=== PATIENT | female | born 1970 | race Caucasian/White ===

== ENCOUNTER → 2019-09-17 14:30 | Outpatient (BNVA) | payer BC, SELFPAY | PROVIDERS: Family Provider Family Medicine; Visit Provider Nurse Practitioner | DX: R05 Cough (principal); Z20.828 Contact with and (suspected) exposure to other viral communicable diseases | CPT/HCPCS: 87635 ==

== ENCOUNTER 2020-01-01 12:00 | Outpatient (CLI) | payer BC, SELFPAY | END 2020-01-01 12:01 | disposition home or self-care (01) | LOC: SLEEP 01-02 11:10 | PROVIDERS: Family Provider Family Medicine; Visit Provider Family Medicine | DX: G47.33 Obstructive sleep apnea (adult) (pediatric) (principal) | CPT/HCPCS: G0399 ==

== ENCOUNTER 2020-05-21 11:28 | Outpatient (RCR) | payer OTHER, SELFPAY | END 2020-05-30 23:59 | disposition home or self-care (01) | LOC: SPT 11:28 | PROVIDERS: Family Provider Family Medicine; PCP Family Medicine; Referring Provider Family Medicine; Visit Provider Family Medicine | DX: H81.399 Other peripheral vertigo, unspecified ear (principal); Q26.9 Congenital malformation of great vein, unspecified | CPT/HCPCS: 95992; 97112; 97163 ==

== ENCOUNTER 2020-05-31 06:00 | Outpatient (RCR) | payer OTHER, SELFPAY | END 2020-06-30 23:59 | disposition home or self-care (01) | LOC: SPT 06:00 | PROVIDERS: Family Provider Family Medicine; PCP Family Medicine; Referring Provider Family Medicine; Visit Provider Family Medicine | DX: H81.399 Other peripheral vertigo, unspecified ear (principal); Q26.9 Congenital malformation of great vein, unspecified | CPT/HCPCS: 97112 ==

== ENCOUNTER 2020-06-22 13:36 | Outpatient (CLI) | payer OTHER, SELFPAY ==
--- NOTE | 2020-06-22 13:39 | MM_ITS ---
WS: [id number] BILATERAL SCREENING DIGITAL MAMMOGRAM WITH CAD HISTORY: SCREENING COMPARISON: 01/18/2018 and 04/26/2011 Bilateral CC and MLO views submitted. Computer aided detection analyzed. Breast composition: The breasts are extremely dense, which lowers the sensitivity of mammography. No suspicious masses, microcalcifications or architectural distortion. RIGHT breast calcification are be nign. MM/[id number] IMPRESSION: BI-RADS: 2-Benign FOLLOW UP: 1 Year Follow-up
== END 2020-06-22 13:37 | disposition home or self-care (01) ==
LOC: RADSHAW 13:38
PROVIDERS: PCP Family Medicine; Visit Provider Family Medicine
DX: Z12.31 Encounter for screening mammogram for malignant neoplasm of breast (principal)
CPT/HCPCS: 77067

== ENCOUNTER 2020-07-01 06:00 | Outpatient (RCR) | payer OTHER, SELFPAY | END 2020-07-30 23:59 | disposition home or self-care (01) | LOC: SPT 06:00 | PROVIDERS: PCP Family Medicine; Referring Provider Family Medicine; Visit Provider Family Medicine | DX: H81.399 Other peripheral vertigo, unspecified ear (principal); Q26.9 Congenital malformation of great vein, unspecified | CPT/HCPCS: 97110; 97112 ==

== ENCOUNTER → 2020-07-28 14:03 | Outpatient (BNVA) | payer OTHER, SELFPAY | PROVIDERS: PCP Family Medicine; Visit Provider Nurse Practitioner Women's Health | DX: R87.610 Atypical squamous cells of undetermined significance on cytologic smear of cervix (ASC-US) (principal); R87.810 Cervical high risk human papillomavirus (HPV) DNA test positive | CPT/HCPCS: 88175 ==

== ENCOUNTER → 2020-12-29 12:13 | Outpatient (BNVA) | payer OTHER, SELFPAY | PROVIDERS: PCP Family Medicine; Visit Provider Nurse Practitioner Women's Health | DX: N90.89 Other specified noninflammatory disorders of vulva and perineum (principal) | CPT/HCPCS: 88305 ==

== ENCOUNTER 2021-01-24 21:26 | Emergency (ER) | payer OTHER, SELFPAY ==
[2021-01-24 21:41] VITALS: BP 129/66; PULSE 103; RESP 22; TEMP 36.9; O2SAT 100; BMI 18.8
--- NOTE | 2021-01-24 22:35 | W.ED.GENADLT ---
Documented by User: Anupam Cartwright MD 01/27/21 22:39 HPI - General Adult General: Chief complaint: General Medical Stated complaint: Heart Racing\Trembeling Phy Sym Also Time Seen by Provider: 01/24/21 22:05 History of Present Illness: HPI narrative: Patient is a 50-year-old female with a history of vestibular issues presenting to the emergency room with worsening vertigo symptoms, nausea, and anxiety now worsening for 4 days. Patient tells me that feeling with chest is racing and that my anxiety is worsening. Patient denies any chest pain, shortness of breath, nausea/vomiting, abdominal pain, fever/chills, cough, ear drainage. She is followed by a vestibular specialist in [place]. Onset: 4 days ago Duration:4 days Location:home Severity:moderate Review of Systems Narrative: Constitutional: No fever, no chills. +paresthesia HEENT: No vision changes CV: No chest pain, no palpitations PULM: no cough, no dyspnea. GI: No abdominal pain, no N/V/D. : No dysuria MSKEL: No muscle pain SKIN: No new rashes, no lesions. NEURO: No headache, no focal weakness. +vertigo HEME: No visible bruises PSYCH: Normal mood PFSH ED PFSH: Medical History Brain trauma visual midline shift syndrome Condyloma acuminata (~2019) anogenital- tx with liquid nitrogen Depression with anxiety Irritable bowel syndrome (IBS) more diarrhea No pertinent past medical history neghx: htn,dm,thyroid,dvt/pe PCP: Dr. Resendez Sleep apnea Vestibular migraine Surgical History History of facial surgery History of hemorrhoidectomy History of placement of ear tubes Hx of oral surgery (~2017) Family History Mother Hypertension Thyroid disease thyroid cancer Hypercholesteremia Father Heart disease Grandmother Diabetes Paternal and Maternal Hypertension Maternal and Paternal Stroke Maternal and Paternal Thyroid disease Maternal Grandfather No problems noted. Family/Other Diabetes Paternal Aunt Colon cancer Maternal Great Grandmother---dx age unknown Heart disease Paternal Aunt x 3 Sister Thyroid disease Denies family history of Ovarian cancer Breast cancer Uterine cancer Physical Exam Narrative: EXAM NARRATIVE: Head: Atraumatic Eyes: PERRL, conjunctiva without injection ENT: Mucous membrane moist NECK: Supple, ROM intact LUNGS: LCTAB, no crackles/rhonchi CV: RRR ABDOMEN: Soft, nontender in all quadrants EXTREMITY: Normal ROM SKIN: No rash or erythema NEURO: Mental status? Awake, alert, and oriented to self, year, month, location, and situation.? Following simple axial and appendicular commands.? Has appropriate fund of knowledge, comprehension, and insight.? Able to recall and understands pertinent aspects of medical history and current treatment status.? ? Language? Speech is fluent without word-finding difficulties.? Intact naming, expression, receptionist telephone operator, and repetition.? ? Cranial nerves? 2,3,4,6: PERRL, EOMI with no nystagmus. 5: Intact sensation to light touch, symmetric? 7: Smile symmetrical, no facial droop.? 8: Hearing grossly intact.? 9,10: Normal palate movement.? 11: Normal strength in trapezius bilaterally 12: Tongue protrudes midline.? ? Motor examination? Normal bulk & tone. Strength as follows (R/L): Delts (5/5), Biceps (5/5), Triceps (5/5), Wrist ext (5/5), hip flexors (5/5), plantarflexors (5/5), dorsiflexors (5/5). Sensation? Light Touch: Grossly intact and equal in upper and lower extremities bilaterally? Romberg: Negative.? Distal joint position sense intact ? Coordination? Pgsatx-kt-wqii-finger movements intact without dysmetria or past-pointing.? Rapid fingertaps: preserved amplitude without decriment.? No tremor, myoclonus or truncal ataxia.? ? Gait/stance? Unbalanced gait with eyes closed Requiring cane and eyes for ambulation PSYCH: Normal mood and affect Course Vital Signs: Vital signs: Vital Signs Temperature 98.5 F 01/24/21 21:41 Pulse Rate 90 01/24/21 23:59 Respiratory Rate 18 01/24/21 23:59 Blood Pressure 120/80 01/24/21 23:59 Pulse Oximetry 100 01/24/21 21:41 MDM - General Adult MDM Narrative: Medical decision making narrative: 50-year-old female with history of seizure disorder presenting to emergency room with worsening vertigo symptoms for the last 4 days. Patient also reports anxiety-like symptoms . EKG showing regular sinus rhythm at HT of 102. Normal axis. No ST elevations/depressions to suggest coronary occlusion. Normal [place], QRS, QT intervals. Laboratory work-up today including CBC, BMP, troponin, XR chest and EKG pending at this time. Lab Data: Labs: Lab Results 01/24/21 01/24/21 01/24/21 22:41 22:41 22:41 WBC 8.5 10^3/uL 10^3/ uL (4.0-10.0) RBC 4.52 10^6/uL 10^6 /uL (4.1-5.3) Hgb 13.6 g/dL g/dL (11.5-15.3) Hct 41.8 % % (37.0-47.0) MCV 92.5 fl fl (81-99) MCH 30.1 pg pg (28.0-34.0) MCHC 32.5 g/dL g/dL (30.0-36.0) RDW 12.6 % % (12.1-15.1) Plt Count 288 10^3/cmm 10^3 /cmm (130-400) MPV 9.5 fL fL (7.4-10.4) Neut % (Auto) 62.7 % % Lymph % (Auto) 29.2 % % [place] % (Auto) 5.6 % % Eos % (Auto) 1.5 % % Baso % (Auto) 0.6 % % Neut # (Auto) 5.30 10^3/uL 10^3 /uL (1.8-7.7) Lymph # (Auto) 2.5 10^3/uL 10^3/ uL (0.8-4.8) [place] # (Auto) 0.5 10^3/uL 10^3/ uL (0.2-0.9) Eos # (Auto) 0.1 10^3/uL 10^3/ uL (0.0-0.8) Baso # (Auto) 0.1 10^3/uL 10^3/ uL (0.0-0.1) Nucleated RBC % (a uto) 0 % % Nucleated RBCs # 0.0 /100WBC /100W BC Sodium 140 mmol/L mmol/L (136-145) Potassium 4.0 mmol/L mmol/L (3.5-5.1) Chloride 105 mmol/L mmol/L (98-107) Carbon Dioxide 24 mmol/L mmol/L (22-29) Anion Gap 15.0 (5-19) BUN 10 mg/dL mg/dL (6-20) Creatinine 1.0 mg/dL H mg/dL (0.5-0.9) GFR Calculation 58.2 mL/min L mL/ min (90-130) Glucose 159 mg/dL H mg/dL (65-115) Calculated Osmolal ity 292 mOsm/kg mOsm/ kg (285-295) Calcium 9.3 mg/dL mg/dL (8.5-10.5) Troponin T Gen 5 n g/L 6 ng/L ng/L (0-10) Discharge Plan Discharge Patient Disposition: Home Clinical Impression: Vertigo, Nausea Condition: Stable Prescriptions: No Action alprazolam [Xanax] 0.5 mg tablet 0.5 mg PO DAILY PRNRF: 0 temazepam 15 mg capsule 15 mg PO .HS PRNRF: 0 ondansetron HCl [Zofran] 4 mg tablet 4 mg PO Q8H PRNRF: 0 cholecalciferol (vitamin D3) 10 mcg (400 unit) capsule 10 mcg PO DAILY RF: 0 escitalopram oxalate [Lexapro] 20 mg tablet 10 mg PO DAILY RF: 0 topiramate [Topamax] 50 mg tablet 100 mg PO DAILY RF: 0 Discharge Orders: Discharge ED (Routine); Ordered 01/24/21 Ordered By: Marquis Cisneros Referrals: Tre Resendez DO [Primary Care Provider] - Discharge Diet: Advance as tolerated Discharge Activity: Resume usual activity Patient Instructions: Dizziness (ED) Activity Restrictions/Additional Instructions: Please follow-up with your specialist for further evaluation of your symptoms. Come back to the emergency room if your symptom worsens, if any fever chills, nausea/vomiting, or any new concerning complaints. Sign Out Sign Out Data: Patient Sign Out occurred on 01/24/21 at 23:16. Patient's care was discussed, and care was transferred from to Marquis Cisneros. Coding Level of Care Code ED Product Designer for Chg Fwd Documented by User: REGINA Gonzales 01/24/21 23:58 HPI - General Adult General: Chief complaint: General Medical Stated complaint: Heart Racing\Trembeling Phy Sym Also Time Seen by Provider: 01/24/21 22:05 [facility] ED PFSH: Medical History Brain trauma visual midline shift syndrome Condyloma acuminata (~2019) anogenital- tx with liquid nitrogen Depression with anxiety Irritable bowel syndrome (IBS) more diarrhea No pertinent past medical history neghx: htn,dm,thyroid,dvt/pe PCP: Dr. Resendez Sleep apnea Vestibular migraine Surgical History History of facial surgery History of hemorrhoidectomy History of placement of ear tubes Hx of oral surgery (~2017) Family History Mother Hypertension Thyroid disease thyroid cancer Hypercholesteremia Father Heart disease Grandmother Diabetes Paternal and Maternal Hypertension Maternal and Paternal Stroke Maternal and Paternal Thyroid disease Maternal Grandfather No problems noted. Family/Other Diabetes Paternal Aunt Colon cancer Maternal Great Grandmother---dx age unknown Heart disease Paternal Aunt x 3 Sister Thyroid disease Denies family history of Ovarian cancer Breast cancer Uterine cancer Course ED course: 2349, laboratory values came back within normal limits. No signs of significant abnormalities noted. Reviewed this with patient recommended follow-up with specialist or primary care for further evaluation and treatment. Patient stated understanding. Vital Signs: Vital signs: Vital Signs Temperature 98.5 F 01/24/21 21:41 Pulse Rate 90 01/24/21 23:59 Respiratory Rate 18 01/24/21 23:59 Blood Pressure 120/80 01/24/21 23:59 Pulse Oximetry 100 01/24/21 21:41 MDM - General Adult Lab Data: Labs: Lab Results 01/24/21 01/24/21 01/24/21 22:41 22:41 22:41 WBC 8.5 10^3/uL 10^3/ uL (4.0-10.0) RBC 4.52 10^6/uL 10^6 /uL (4.1-5.3) Hgb 13.6 g/dL g/dL (11.5-15.3) Hct 41.8 % % (37.0-47.0) MCV 92.5 fl fl (81-99) MCH 30.1 pg pg (28.0-34.0) MCHC 32.5 g/dL g/dL (30.0-36.0) RDW 12.6 % % (12.1-15.1) Plt Count 288 10^3/cmm 10^3 /cmm (130-400) MPV 9.5 fL fL (7.4-10.4) Neut % (Auto) 62.7 % % Lymph % (Auto) 29.2 % % [place] % (Auto) 5.6 % % Eos % (Auto) 1.5 % % Baso % (Auto) 0.6 % % Neut # (Auto) 5.30 10^3/uL 10^3 /uL (1.8-7.7) Lymph # (Auto) 2.5 10^3/uL 10^3/ uL (0.8-4.8) [place] # (Auto) 0.5 10^3/uL 10^3/ uL (0.2-0.9) Eos # (Auto) 0.1 10^3/uL 10^3/ uL (0.0-0.8) Baso # (Auto) 0.1 10^3/uL 10^3/ uL (0.0-0.1) Nucleated RBC % (a uto) 0 % % Nucleated RBCs # 0.0 /100WBC /100W BC Sodium 140 mmol/L mmol/L (136-145) Potassium 4.0 mmol/L mmol/L (3.5-5.1) Chloride 105 mmol/L mmol/L (98-107) Carbon Dioxide 24 mmol/L mmol/L (22-29) Anion Gap 15.0 (5-19) BUN 10 mg/dL mg/dL (6-20) Creatinine 1.0 mg/dL H mg/dL (0.5-0.9) GFR Calculation 58.2 mL/min L mL/ min (90-130) Glucose 159 mg/dL H mg/dL (65-115) Calculated Osmolal ity 292 mOsm/kg mOsm/ kg (285-295) Calcium 9.3 mg/dL mg/dL (8.5-10.5) Troponin T Gen 5 n g/L 6 ng/L ng/L (0-10) Discharge Plan Discharge Patient Disposition: Home Clinical Impression: Vertigo, Nausea Condition: Stable Prescriptions: No Action alprazolam [Xanax] 0.5 mg tablet 0.5 mg PO DAILY PRNRF: 0 temazepam 15 mg capsule 15 mg PO .HS PRNRF: 0 ondansetron HCl [Zofran] 4 mg tablet 4 mg PO Q8H PRNRF: 0 cholecalciferol (vitamin D3) 10 mcg (400 unit) capsule 10 mcg PO DAILY RF: 0 escitalopram oxalate [Lexapro] 20 mg tablet 10 mg PO DAILY RF: 0 topiramate [Topamax] 50 mg tablet 100 mg PO DAILY RF: 0 Discharge Orders: Discharge ED (Routine); Ordered 01/24/21 Ordered By: Marquis Cisneros Referrals: Tre Resendez DO [Primary Care Provider] - Discharge Diet: Advance as tolerated Discharge Activity: Resume usual activity Patient Instructions: Dizziness (ED) Activity Restrictions/Additional Instructions: Please follow-up with your specialist for further evaluation of your symptoms. Come back to the emergency room if your symptom worsens, if any fever chills, nausea/vomiting, or any new concerning complaints. Sign Out Sign Out Data: Patient Sign Out occurred on 01/24/21 at 23:16. Patient's care was discussed, and care was transferred from to Marquis Cisneros. Coding Level of Care Code ED Product Designer for Joey Gaspar
[2021-01-24 22:45] LABS: Basophils # 0.1 10^3/uL (0.0-0.1); Basophils % 0.6 %; Eosinophils # 0.1 10^3/uL (0.0-0.8); Eosinophils % 1.5 %; Hematocrit 41.8 % (37.0-47.0); Hemoglobin 13.6 g/dL (11.5-15.3); Lymphocytes # 2.5 10^3/uL (0.8-4.8); Lymphocytes % 29.2 %; Mean Corpuscular HGB Conc 32.5 g/dL (30.0-36.0); Mean Corpuscular Hemoglobin 30.1 pg (28.0-34.0); Mean Corpuscular Volume 92.5 fl (81-99); Mean Platelet Volume 9.5 fL (7.4-10.4); Monocytes # 0.5 10^3/uL (0.2-0.9); Monocytes % 5.6 %; Neutrophils % 62.7 %; Nucleated Red Blood Cells % 0 %; Platelet Count 288 10^3/cmm (130-400); Red Blood Count 4.52 10^6/uL (4.1-5.3); Red Cell Distribution Width 12.6 % (12.1-15.1); White Blood Count 8.5 10^3/uL (4.0-10.0)
[2021-01-24 23:06] LABS: Blood Urea Nitrogen 10 mg/dL (6-20); Calcium 9.3 mg/dL (8.5-10.5); Carbon Dioxide 24 mmol/L (22-29); Chloride 105 mmol/L (98-107); Glomerular Filtration Rate 58.2 mL/min (90-130); Glucose 159 mg/dL (65-115); Osmolality Calculated 292 mOsm/kg (285-295); Sodium 140 mmol/L (136-145)
[2021-01-24] MEDS: diphenhydrAMINE 50 mg/mL SDV 1mL IVP (23:13)
[2021-01-24] MEDS: LORazepam 2 mg/mL INJ 1 mL IVP (23:13)
[2021-01-24] MEDS: sodium chloride 0.9% 1,000 ML 999 ML IV (23:13)
[2021-01-24 23:41] LABS: Troponin T (5th) Once 6 ng/L (0-10)
[2021-01-24 23:59] VITALS: BP 120/80; PULSE 90; RESP 18
--- NOTE | 2021-01-25 00:01 | PC.NURSE ---
pt states that she feels better after meds
== END 2021-01-25 00:04 | disposition home or self-care (01) ==
PROVIDERS: Emergency Medicine; Emergency Provider Nurse Practitioner Family; PCP Family Medicine
DX: R42 Dizziness and giddiness (principal); R11.0 Nausea; F41.8 Other specified anxiety disorders; Z87.820 Personal history of traumatic brain injury
CPT/HCPCS: 36415; 80048; 84484; 85025; 96361; 96374; 96375; 99283; J1200; J2060; J7030

== ENCOUNTER → 2021-07-29 11:31 | Outpatient (BNVA) | payer OTHER, SELFPAY | PROVIDERS: PCP Family Medicine; Visit Provider Nurse Practitioner Women's Health | DX: R87.610 Atypical squamous cells of undetermined significance on cytologic smear of cervix (ASC-US) (principal); R87.810 Cervical high risk human papillomavirus (HPV) DNA test positive; Z01.419 Encounter for gynecological examination (general) (routine) without abnormal findings; B02.9 Zoster without complications; Z12.39 Encounter for other screening for malignant neoplasm of breast | CPT/HCPCS: 87624 ==

== ENCOUNTER → 2021-08-15 08:49 | Outpatient (BNVA) | payer OTHER, SELFPAY | PROVIDERS: PCP Family Medicine; Visit Provider Obstetrics & Gynecology | DX: R87.610 Atypical squamous cells of undetermined significance on cytologic smear of cervix (ASC-US) (principal); R87.810 Cervical high risk human papillomavirus (HPV) DNA test positive | CPT/HCPCS: 88305 ==

== ENCOUNTER 2021-09-13 15:13 | Outpatient (CLI) | payer OTHER, SELFPAY ==
--- NOTE | 2021-09-13 16:03 | MM_ITS ---
WS: [id number] BILATERAL 3D TOMOSYNTHESIS DIGITAL SCREENING MAMMOGRAPHY WITH CAD CLINICAL INFORMATION: SCREEN HISTORY: Screening mammogram. No current complaints. COMPARISON: June 22, 2020 TECHNIQUE: Bilateral CC and MLO views. FINDINGS: The breasts are composed of heterogeneous fibroglandular density tissue, which can limit the detectio n of small underlying mass lesions. Punctate and lucent centered calcifications. Stable clustered krysten cifications. No suspicious mass, asymmetry, calcifications, or architectural distortion. No evidence of malignancy. MM/[place] [id number] IMPRESSION: BI-RADS: 2-Benign FOLLOW UP: 1 Year Follow-up Recommend return to annual screening mammography.
== END 2021-09-13 15:14 | disposition home or self-care (01) ==
LOC: RAD 15:14
PROVIDERS: PCP Family Medicine; Visit Provider Nurse Practitioner Women's Health
DX: Z12.31 Encounter for screening mammogram for malignant neoplasm of breast (principal)
CPT/HCPCS: 77063; 77067

== ENCOUNTER 2022-01-27 19:58 | Emergency (ER) | payer MEDICARE, SELFPAY ==
[2022-01-27 20:05] VITALS: BP 163/96; PULSE 93; RESP 17; TEMP 36.6; O2SAT 98; BMI 20.7
--- NOTE | 2022-01-27 20:08 | ECG_ITS ---
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 Measurements Intervals [place] Rate: 93 P: 63 MT: 160 QRS: 72 QRSD: 79 T: 56 QT: 350 QTc: 437 Interpretive Statements SINUS RHYTHM NONSPECIFIC T-WAVE ABNORMALITY Compared to ECG 08/25/2014 14:51:16 No significant changes Electronically Signed On 01-27-2022 21:37:30 CDT by Bessy Owens M.D. [id number] f
--- NOTE | 2022-01-27 20:20 | XRR_ITS ---
PROCEDURE INFORMATION: Exam: XR Chest Exam date and time: 01/27/2022 8:35 PM Age: 51 years old Clinical indication: Pain; Shortness of breath and other: Numbness; Chest pressure; Additional info: Cp TECHNIQUE: Imaging protocol: Radiologic exam of the chest. Views: 1 view. COMPARISON: CR XR cervical spine 3V* [id number] 04/19/2015 9:57 AM FINDINGS: Lungs: Unremarkable. No consolidation. Pleural spaces: Unremarkable. No pleural effusion. No pneumothorax. Heart/Mediastinum: Unremarkable. No cardiomegaly. Bones/joints: Unremarkable. XR/XR chest 1V portable [id number] IMPRESSION: No acute findings.
[2022-01-27 20:52] LABS: Basophils # 0.1 10^3/uL (0.0-0.1); Basophils % 0.9 %; Eosinophils # 0.1 10^3/uL (0.0-0.8); Eosinophils % 1.4 %; Hematocrit 45.2 % (37.0-47.0); Lymphocytes # 3.1 10^3/uL (0.8-4.8); Lymphocytes % 38.7 %; Mean Corpuscular HGB Conc 33.2 g/dL (30.0-36.0); Mean Corpuscular Hemoglobin 30.2 pg (28.0-34.0); Mean Corpuscular Volume 90.9 fl (81-99); Mean Platelet Volume 9.2 fL (7.4-10.4); Monocytes # 0.5 10^3/uL (0.2-0.9); Monocytes % 6.2 %; Neutrophils # 4.11 10^3/uL (1.8-7.7); Neutrophils % 52.2 %; Nucleated Red Blood Cells % 0 %; Platelet Count 338 10^3/cmm (130-400); Red Blood Count 4.97 10^6/uL (4.1-5.3); White Blood Count 7.9 10^3/uL (4.0-10.0)
[2022-01-27 20:59] VITALS: BP 147/93; PULSE 87; RESP 17; O2SAT 99
[2022-01-27 21:12] LABS: Troponin(5th) Baseline 6 ng/L (0-10)
[2022-01-27 21:20] LABS: Alanine Aminotransferase 36 U/L (0-33); Albumin Level 4.7 g/dL (3.5-5.2); Alkaline Phosphatase 113 U/L (35-105); Anion Gap 15.9 (5-19); Aspartate Amino Transferase 23 U/L (0-32); Blood Urea Nitrogen 14 mg/dL (6-20); Calcium 10.2 mg/dL (8.5-10.5); Carbon Dioxide 29 mmol/L (22-29); Chloride 101 mmol/L (98-107); Globulin 2.7 g/dL (1.3-4.6); Glucose 92 mg/dL (65-115); NT Pro B Type Natriuretic Pept 70 pg/mL (0-125); Osmolality Calculated 294 mOsm/kg (285-295); Potassium 3.9 mmol/L (3.5-5.1); Sodium 142 mmol/L (136-145); Total Bilirubin 0.2 mg/dL (0.15-1.2); Total Protein 7.4 g/dL (6.6-8.7)
--- NOTE | 2022-01-27 22:20 | ECG_ITS ---
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 Measurements Intervals [place] Rate: 80 P: 55 IN: 161 QRS: 59 QRSD: 83 T: 53 QT: 375 QTc: 435 Interpretive Statements SINUS RHYTHM LOW QRS VOLTAGE IN PRECORDIAL LEADS [QRS DEFLECTION < 1.0 mV IN CHEST LEADS] POSSIBLE RIGHT VENTRICULAR CONDUCTION DELAY [RSR (QR) IN V1/V2] Compared to ECG 01/27/2022 20:08:41 Low QRS voltage now present T-wave abnormality no longer present Electronically Signed On 01-27-2022 22:27:56 CDT by Bessy Owens M.D. [id number]
--- NOTE | 2022-01-27 22:44 | W.ED.CHESTPA ---
HPI - Chest Pain General: Chief Complaint: Chest Pain Stated Complaint: cp Time Seen by Provider: 01/27/22 20:19 Source: patient History of Present Illness: 51-year-old female complains of chest discomfort. She has no prior history of coronary disease. She was evidently out to eat with family, had been to the bathroom and wash her hands, and felt palpitations in her chest, like her heart was pounding. She had some chest discomfort she describes as an ache. The heart pounding essentially is gone now, but she still complains of the ache in her anterior chest. She states it feels like I need a massage . Her blood pressure is elevated for her. She notes that usually her systolic pressure is around 100. She does have a history of anxiety, and wonders if that could be yet, although she has not had the specific symptoms prior MD complaint: chest pain Onset (ago): hour(s) Timing of current episode: constant Prior episodes: No Onset: during rest and after eating Pain location: substernal Relieving factors: nothing Exacerbating factors: nothing Associated symptoms: Reports palpitations; Deny abdominal pain, diaphoresis, dyspnea, fever(s), leg edema, nausea, sense of impending doom, syncope or vomiting Treatment prior to arrival: none Risk Factors: Coronary artery disease risk factors: family history of CAD before age 50 Review of Systems Const: Denies: fever(s) or diaphoresis Eyes: Denies: change in vision ENMT: Denies: throat pain Card: Reports: palpitations; Denies: syncope Resp: Denies: dyspnea GI: Denies: abdominal pain, nausea or vomiting Musc: Reports: back pain; Denies: neck pain Skin/Breast: Denies: rash Neuro: Reports: headache(s) PFSH ED PFSH: Medical History Brain trauma visual midline shift syndrome Condyloma acuminata (~2019) anogenital- tx with liquid nitrogen Depression with anxiety Irritable bowel syndrome (IBS) more diarrhea No pertinent past medical history neghx: htn,dm,thyroid,dvt/pe PCP: Dr. Resendez Sleep apnea Vestibular migraine managed by [facility] Surgical History History of facial surgery History of hemorrhoidectomy History of placement of ear tubes Hx of oral surgery (~2018) S/P sympathectomy (1997) Family History Mother Hypertension Thyroid disease thyroid cancer Hypercholesteremia Father Heart disease Hypercholesteremia Grandmother Diabetes Paternal and Maternal Hypertension Maternal and Paternal Stroke Maternal and Paternal Thyroid disease Maternal Grandfather No problems noted. Family/Other Diabetes Paternal Aunt Colon cancer Maternal Great Grandmother---dx age unknown Heart disease Paternal Aunt x 3 Sister Thyroid disease Denies family history of Ovarian cancer Breast cancer Uterine cancer Social History Smoking and tobacco status: former smoker Quit status (tobacco): has quit using tobacco Year quit tobacco: 05/2019 Second hand smoke exposure: No Smoking risk assessment/counseling performed?: No Alcohol intake: former Year of sobriety/quit date alcohol: 2014 Desire information about alcohol rehabilitation?: No Counseling given: No Desire information about substance/drug rehabilitation?: No Counseling given: No Physical Exam Const: COMMON NORMALS: no acute distress GENERAL APPEARANCE: cooperative; not ill appearing and not frail appearing HENMT: COMMON NORMALS: normocephalic, atraumatic and Normal external nose present HEAD & SCALP: normocephalic and atraumatic FACE & SINUS: normal facial exam and face symmetric NOSE: Normal external nose present Eye: COMMON NORMALS: Equal, round and reactive pupils present and EOMs intact bilaterally PUPIL: Yes Equal, round and reactive pupils present Neck/C-Spine: GENERAL: Yes trachea midline Chest: CHEST: Yes Symmetrical chest wall rise Resp: COMMON NORMALS: normal respiratory effort, No retractions, No use of accessory muscles and clear to auscultation bilaterally AUSCULTATION: clear to auscultation bilaterally Cardio: COMMON NORMALS: regular rate and regular rhythm RATE: regular rate RHYTHM: regular rhythm GI: COMMON NORMALS: Normal to inspection, nondistended, normoactive bowel sounds present Extremity: COMMON NORMALS: no pedal edema Neuro: BOGDAN COMA SCALE: document GCS findings Bogdan coma scale eye opening: Spontaneous Bogdan coma scale verbal response: Orientated Bogdan coma scale motor response: Obey commands Bogdan coma scale total score: 15 SENSORY EXAM: Yes extremities (intact) Psych: COMMON NORMALS: speech normal SPEECH: Yes normal speech Skin: COMMON NORMALS: no rashes or lesions noted GENERAL SKIN EXAM: no rashes or lesions noted Course Vital Signs: Vital signs: Vital Signs Temperature 97.9 F 01/27/22 20:05 Pulse Rate 76 01/28/22 00:21 Respiratory Rate 15 01/28/22 00:21 Blood Pressure 117/79 01/28/22 00:21 Pulse Oximetry 99 01/28/22 00:21 Oxygen Delivery Me thod 01/27/22 20:59 MDM - Chest Pain Medical Decision Making She has had a couple ofChest pain is essentially resolved. Episodes of palpitations here, which she attributes to her high blood pressure here which has waxed and waned. Currently she is normotensive. CBC is normal. BMP is normal. Her EKG shows a sinus rhythm with a normal axis and intervals. Her rate is 80. She has no acute ST changes, and no Q waves. She does have an RSR prime in V1 V2. Chest x-ray is nonacute. Delta troponin is 1. She will be allowed home. Lab Data : 01/27/22 20:40 01/27/22 20:40 Radiology Impressions Chest X-Ray 01/27/22 20:20 IMPRESSION: No acute findings. Laboratory Results WBC 7.9 10^3/uL (4.0-10.0) 01/27/22 20:40 RBC 4.97 10^6/uL (4.1-5.3) 01/27/22 20:40 Hgb 15.0 g/dL (11.5-15.3) 01/27/22 20:40 Hct 45.2 % (37.0-47.0) 01/27/22 20:40 MCV 90.9 fl (81-99) 01/27/22 20:40 MCH 30.2 pg (28.0-34.0) 01/27/22 20:40 MCHC 33.2 g/dL (30.0-36.0) 01/27/22 20:40 RDW 13.0 % (12.1-15.1) 01/27/22 20:40 Plt Count 338 10^3/cmm (130-400) 01/27/22 20:40 MPV 9.2 fL (7.4-10.4) 01/27/22 20:40 Neut % (Auto) 52.2 % 01/27/22 20:40 Lymph % (Auto) 38.7 % 01/27/22 20:40 [place] % (Auto) 6.2 % 01/27/22 20:40 Eos % (Auto) 1.4 % 01/27/22 20:40 Baso % (Auto) 0.9 % 01/27/22 20:40 Neut # (Auto) 4.11 10^3/uL (1.8-7.7) 01/27/22 20:40 Lymph # (Auto) 3.1 10^3/uL (0.8-4.8) 01/27/22 20:40 [place] # (Auto) 0.5 10^3/uL (0.2-0.9) 01/27/22 20:40 Eos # (Auto) 0.1 10^3/uL (0.0-0.8) 01/27/22 20:40 Baso # (Auto) 0.1 10^3/uL (0.0-0.1) 01/27/22 20:40 Nucleated RBC % (auto) 0 % 01/27/22 20:40 Nucleated RBCs # 0.0 /100WBC 01/27/22 20:40 Sodium 142 mmol/L (136-145) 01/27/22 20:40 Potassium 3.9 mmol/L (3.5-5.1) 01/27/22 20:40 Chloride 101 mmol/L (98-107) 01/27/22 20:40 Carbon Dioxide 29 mmol/L (22-29) 01/27/22 20:40 Anion Gap 15.9 (5-19) 01/27/22 20:40 BUN 14 mg/dL (6-20) 01/27/22 20:40 Creatinine 0.8 mg/dL (0.5-0.9) 01/27/22 20:40 GFR Calculation 75.0 mL/min (90-130) L 01/27/22 20:40 Glucose 92 mg/dL (65-115) 01/27/22 20:40 Calculated Osmolality 294 mOsm/kg (285-295) 01/27/22 20:40 Calcium 10.2 mg/dL (8.5-10.5) 01/27/22 20:40 Total Bilirubin 0.2 mg/dL (0.15-1.2) 01/27/22 20:40 AST 23 U/L (0-32) 01/27/22 20:40 ALT 36 U/L (0-33) H 01/27/22 20:40 Alkaline Phosphatase 113 U/L (35-105) H 01/27/22 20:40 Troponin T Baseline 6 ng/L (0-10) 01/27/22 20:40 Troponin T 120 Minute 7.11 ng/L (0-10) 01/27/22 22:32 Delta Troponin T 1.11 ABS# (0-10) 01/27/22 22:32 NT-Pro-B Natriuret Pep 70 pg/mL (0-125) 01/27/22 20:40 Total Protein 7.4 g/dL (6.6-8.7) 01/27/22 20:40 Albumin 4.7 g/dL (3.5-5.2) 01/27/22 20:40 Globulin 2.7 g/dL (1.3-4.6) 01/27/22 20:40 Discharge Plan Discharge Patient Disposition: Home Clinical Impression: Chest pain Condition: Stable Prescriptions: No Action alprazolam [Xanax] 0.5 mg tablet 0.5 mg PO DAILY PRN ondansetron HCl [Zofran] 4 mg tablet 4 mg PO Q8H PRN cholecalciferol (vitamin D3) 10 mcg (400 unit) capsule 10 mcg PO DAILY amitriptyline 25 mg tablet 25 mg PO .HS Qty: 30 2RF magnesium oxide 400 mg magnesium capsule 450 mg PO DAILY PRN gabapentin 300 mg capsule 300 mg PO TID Qty: 90 2RF cyanocobalamin (vitamin B-12) 5,000 mcg capsule 5,000 mcg PO DAILY escitalopram oxalate 20 mg tablet See Rx Instructions .ROUTE .COMPLEX Qty: 90 1RF Dose Instruction: TAKE 1 TABLET BY MOUTH EVERY DAY Rx Instructions: TAKE 1 TABLET BY MOUTH EVERY DAY Discharge Orders: Discharge ED (Routine); Ordered 01/28/22 Ordered By: James Calabrese Referrals: Tre Resendez DO [Primary Care Provider] - 1-3 days Patient Instructions: Chest Pain (ED) Activity Restrictions/Additional Instructions: Return for repeated episodes of chest pain or palpitations, shortness of breath, other concerning symptoms. Check your blood pressure twice daily. Call your doctor on Sunday. They may want to see you or perform more outpatient tests Coding Level of Care Code ED Assembler Trim for Chg Fwd Exam Comprehensive
[2022-01-27 23:04] LABS: Troponin 5 2HR 7.11 ng/L (0-10)
[2022-01-27 23:16] LABS: Troponin 5 2HR Delta 1.11 ABS# (0-10)
[2022-01-28 00:21] VITALS: BP 117/79; PULSE 76; RESP 15; O2SAT 99
== END 2022-01-28 00:22 | disposition home or self-care (01) ==
PROVIDERS: Emergency Provider Emergency Medicine; PCP Family Medicine
DX: R07.9 Chest pain, unspecified (principal)
CPT/HCPCS: 71045; 80053; 83880; 84484; 85025; 93005; 99285

== ENCOUNTER 2022-02-09 16:08 | Emergency (ER) | payer MEDICARE, SELFPAY ==
[2022-02-09 16:10] VITALS: BP 151/102; PULSE 99; RESP 17; TEMP 36.8; O2SAT 97; BMI 20.7
--- NOTE | 2022-02-09 16:13 | ED.C_ITS ---
HPI - Psych General: Chief Complaint: Psychiatric Symptoms Stated Complaint: behavioral issues Time Seen by Provider: 02/09/22 16:12 History of Present Illness: Ms. Navarrete is a 51-year-old lady with history of anxiety and history of liver dysfunction presenting to the emergency dep artment for worsening anxiety with passive suicidal ideation. She reports starting in December she was titrated down on her Lexapro which she she is now off of and started on amitriptyline and gabapentin. She has not felt herself progressively worsening. Denies specific thoughts of suicide but does have thoughts of wondering if she be better off not alive. No active plan or history of attempts. No history of psychiatric hospitalizations. Intensity symptoms is moderate. Patient is tearful. Otherwise denies medical complaints. No other specific changes in health, exacerbating, or alleviating factors identified. Onset (ago): week(s) Context: new medication(s) Review of Systems General: Reports: 10 or more systems reviewed and unremarkable except in HPI and below PFSH ED PFSH: Medical History Brain trauma visual midline shift syndrome Condyloma acuminata (~2019) anogenital- tx with liquid nitrogen Depression with anxiety Irritable bowel syndrome (IBS) more diarrhea No pertinent past medical history neghx: htn,dm,thyroid,dvt/pe PCP: Dr. Resendez Sleep apnea Vestibular migraine managed by [facility] Surgical History History of facial surgery History of hemorrhoidectomy History of placement of ear tubes Hx of oral surgery (~2017) S/P sympathectomy (1997) Family History Mother Hypertension Thyroid disease thyroid cancer Hypercholesteremia Father Heart disease Hypercholesteremia Grandmother Diabetes Paternal and Maternal Hypertension Maternal and Paternal Stroke Maternal and Paternal Thyroid disease Maternal Grandfather No problems noted. Family/Other Diabetes Paternal Aunt Colon cancer Maternal Great Grandmother---dx age unknown Heart disease Paternal Aunt x 3 Sister Thyroid disease Denies family history of Ovarian cancer Breast cancer Uterine cancer Social History Smoking and tobacco status: former smoker Quit status (tobacco): has quit using tobacco Year quit tobacco: 05/2019 Second hand smoke exposure: No Smoking risk assessment/counseling performed?: No Alcohol intake: former Year of sobriety/quit date alcohol: 2014 Desire information about alcohol rehabilitation?: No Counseling given: No Desire information about substance/drug rehabilitation?: No Counseling given: No Physical Exam Const: COMMON NORMALS: alert GENERAL APPEARANCE: cooperative and well developed HENMT: COMMON NORMALS: normocephalic and atraumatic HEAD & SCALP: normocephalic and atraumatic Eye: COMMON NORMALS: conjunctivae normal CONJUNCTIVA: Yes conjunctivae normal SCLERA: sclerae normal Neck/C-Spine: COMMON NORMALS: supple GENERAL: Yes trachea midline Resp: COMMON NORMALS: normal respiratory effort EFFORT & INSPECTION: Yes able to speak in complete sentences Cardio: COMMON NORMALS: regular rate and regular rhythm RATE: regular rate RHYTHM: regular rhythm GI: COMMON NORMALS: Soft to palpation PALPATION: Yes Soft to palpation and No Tenderness to palpation present (GI) Extremity: GENERAL: Yes normal exam except as noted and No edema Neuro: COMMON NORMALS: moves all extremities SENSORIUM/ORIENTATION: Yes alert and No Orientation impaired Psych: COMMON NORMALS: mental status grossly normal and Normal thought process present MOOD & AFFECT: Yes anxious and Yes sad THOUGHT PROCESS: Normal thought process present Course Vital Signs: Vital signs: Vital Signs Temperature 98.3 F 02/09/22 16:10 Pulse Rate 99 02/09/22 16:10 Respiratory Rate 16 02/09/22 20:07 Blood Pressure 151/102 02/09/22 16:10 Pulse Oximetry 97 02/09/22 16:10 Oxygen Delivery Me thod 02/09/22 16:10 MDM - Psych Medical Decision Making 51-year-old lady presenting with status of depression and passive suicidal ideation. No active suicidal ideation or injuries. Patient is nontoxic on exam. Patient does not wish to have inpatient management. Psychiatry service consulted and evaluated patient. Patient satisfactory for outpatient management with defined plan to follow-up with psychiatric provider. The results of ED evaluation were given to the patient including prescriptions and/or symptomatic cares (if applicable) including appropriate and responsible use, followup plan, and return precautions. The patient verbalized understanding and felt safe for discharge. Medical Records I reviewed the patient's medical records. Lab Data I reviewed the patient's lab results. Discharge Plan Discharge Patient Disposition: Home Clinical Impression: Depression Condition: Stable Prescriptions: No Action ondansetron HCl [Zofran] 4 mg tablet 4 mg PO Q8H PRN (Reason: Nausea) cholecalciferol (vitamin D3) 10 mcg (400 unit) capsule 10 mcg PO DAILY magnesium oxide 400 mg magnesium capsule 450 mg PO DAILY gabapentin 300 mg capsule 300 mg PO TID Qty: 90 2RF escitalopram oxalate 10 mg tablet 10 mg PO DAILY Qty: 1 0RF metoprolol tartrate 25 mg tablet 25 mg PO BID PRN (Reason: HR) Qty: 1 0RF Rx Instructions: HR alprazolam [Xanax] 0.5 mg tablet 0.5 mg PO TID PRN (Reason: Anxiety) Qty: 90 1RF amitriptyline 25 mg tablet 25 mg PO BEDTIME Discharge Orders: Discharge ED (Routine); Ordered 02/09/22 Ordered By: Bony Kelly Referrals: Tre Resendez, [Primary Care Provider] - Discharge Diet: Usual diet Discharge Activity: Resume usual activity Patient Instructions: Depression (ED) Activity Restrictions/Additional Instructions: Thank you for visiting the emergency department. You were seen and evaluated for depression. After ED evaluation and discussion with psychiatry service please continue your plan for outpatient follow-up. [facility] [phone] If you or someone you care for is experiencing a psychiatric emergency, please call the crisis hotline ([employer]) 24-hours a day, 7 days a week at [phone]. Return to the emergency department for worsening symptoms, thoughts of harming yourself or others, hallucinations, or anything else that you are concerned about a feel needs emergency department evaluation. Coding Level of Care Code ED County Commissioner for Joey Gaspar
--- NOTE | 2022-02-09 16:35 | ECG_ITS ---
[facility] Test Date: 2022-02-09 Pat Name: Viridiana Navarrete Department: Room: Gender: Female Certified Nutritionist: : 1970 Requested By: Bony Kelly Order Number: [id number] Monique MD: Markel Soni M.D. 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 [id number]
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
[2022-02-09 20:07] VITALS: RESP 16
== END 2022-02-09 20:08 | disposition home or self-care (01) ==
PROVIDERS: Emergency Provider Emergency Medicine; PCP Family Medicine
DX: F32.A Depression, unspecified (principal); Z87.891 Personal history of nicotine dependence
CPT/HCPCS: 93005

== ENCOUNTER → 2022-05-18 09:39 | Outpatient (BNVA) | payer MEDICARE, SELFPAY | PROVIDERS: PCP Family Medicine; Visit Provider Internal Medicine Cardiovascular Disease | DX: R00.0 Tachycardia, unspecified (principal); R55 Syncope and collapse; R07.89 Other chest pain | CPT/HCPCS: 93242; 99204; Q3014 ==

== ENCOUNTER → 2022-08-10 15:56 | Outpatient (BNVA) | payer MEDICARE, SELFPAY | PROVIDERS: PCP Family Medicine; Visit Provider Nurse Practitioner Women's Health | DX: R30.0 Dysuria (principal); R87.610 Atypical squamous cells of undetermined significance on cytologic smear of cervix (ASC-US); R87.810 Cervical high risk human papillomavirus (HPV) DNA test positive | CPT/HCPCS: 81000; 87086; 87624 ==

== ENCOUNTER → 2022-09-19 13:00 | Outpatient (BNVA) | payer MEDICARE, SELFPAY | PROVIDERS: PCP Family Medicine; Visit Provider Obstetrics & Gynecology | DX: Z01.818 Encounter for other preprocedural examination (principal); R87.619 Unspecified abnormal cytological findings in specimens from cervix uteri | CPT/HCPCS: 81025; 88305 ==

== ENCOUNTER → 2022-10-02 11:00 | Outpatient (BNVA) | payer MEDICARE, SELFPAY | PROVIDERS: PCP Family Medicine; Visit Provider Obstetrics & Gynecology | DX: Z00.00 Encounter for general adult medical examination without abnormal findings (principal); R94.6 Abnormal results of thyroid function studies; R87.612 Low grade squamous intraepithelial lesion on cytologic smear of cervix (LGSIL) | CPT/HCPCS: 83001; 84443 ==

== ENCOUNTER → 2022-11-23 10:25 | Outpatient (BNVA) | payer MEDICARE, SELFPAY | PROVIDERS: PCP Family Medicine; Visit Provider Internal Medicine Cardiovascular Disease | DX: R00.0 Tachycardia, unspecified (principal); Z87.891 Personal history of nicotine dependence; G43.809 Other migraine, not intractable, without status migrainosus | CPT/HCPCS: 99213 ==

== ENCOUNTER → 2022-12-26 11:20 | Outpatient (BNVA) | payer MEDICARE, SELFPAY | PROVIDERS: PCP Family Medicine; Visit Provider Family Medicine | DX: R07.89 Other chest pain (principal); Z13.220 Encounter for screening for lipoid disorders; E55.9 Vitamin D deficiency, unspecified; M79.10 Myalgia, unspecified site; E53.8 Deficiency of other specified B group vitamins; E03.9 Hypothyroidism, unspecified; Z51.81 Encounter for therapeutic drug level monitoring; G43.809 Other migraine, not intractable, without status migrainosus; F06.4 Anxiety disorder due to known physiological condition; R00.0 Tachycardia, unspecified | CPT/HCPCS: 80053; 80061; 82306; 82607; 83735; 84443; 85025 ==

== ENCOUNTER 2023-01-24 14:20 | Outpatient (CLI) | payer MEDICARE, SELFPAY ==
--- NOTE | 2023-01-24 14:26 | MM_ITS ---
WS: [id number] BILATERAL 3D TOMOSYNTHESIS DIGITAL SCREENING MAMMOGRAPHY WITH CAD CLINICAL INFORMATION: Screening mammogram HISTORY: Screening mammogram. No current complaints. COMPARISON: 2021 TECHNIQUE: Bilateral CC and MLO views. FINDINGS: The breasts are composed of heterogeneous fibroglandular density tissue, which can limit the detectio n of small underlying mass lesions. No suspicious mass, asymmetry, calcifications, or architectural d istortion. No evidence of malignancy. Incidental punctate and lucent centered calcifications. IMPRESSION: MM/[place] [id number] BI-RADS: 2-Benign FOLLOW UP: 1 Year Follow-up Recommend return to annual screening mammography.
--- NOTE | 2023-01-24 14:50 | XR_ITS ---
WS: [id number] Exam: XR lumbar spine 2-3V* [id number] Date/Time of Exam: 01/24/2023 2:52 PM Reason For Exam: Lumbar radiculopathy Comparison 04/19/2015. No fracture or dislocation noted. The disc spaces are well-maintained. Slight spondylosis. Posterior elements appear normal. No significant scoliosis. Mild atherosclerotic plaquing of the abdominal aort a. IMPRESSION: 1. Slight degenerative change otherwise unremarkable lumbar spine study.
--- NOTE | 2023-01-24 14:50 | XR_ITS ---
WS: [id number] Exam: XR cervical spine 3V* [id number] Date/Time of Exam: 01/24/2023 2:52 PM Reason For Exam: Cervical radiculopathy Comparison 04/19/2015. No acute fracture or dislocation. There is straightening with loss of the normal cervical C curve. Th ere is very mild degenerative anterolisthesis of C7 on T1. Mild facet DJD at all levels. Normal lenora feli soft tissues. The odontoid is intact. Disc spaces relatively well-maintained. IMPRESSION: 1. No fracture or malalignment. Straightening. 2. Mild degenerative changes.
== END 2023-01-24 14:21 | disposition home or self-care (01) ==
PROVIDERS: PCP Family Medicine; Visit Provider Family Medicine
DX: M54.16 Radiculopathy, lumbar region (principal); M54.12 Radiculopathy, cervical region; Z12.31 Encounter for screening mammogram for malignant neoplasm of breast; M47.892 Other spondylosis, cervical region; M47.896 Other spondylosis, lumbar region
CPT/HCPCS: 72040; 72100; 77063; 77067

== ENCOUNTER 2023-04-11 13:08 | Emergency (ER) | payer MEDICARE, SELFPAY ==
[2023-04-11 13:27] VITALS: BMI 21.6
[2023-04-11 13:31] VITALS: BP 91/57; PULSE 48; RESP 16; TEMP 36.7; O2SAT 99
--- NOTE | 2023-04-11 13:43 | XRR_ITS ---
PROCEDURE INFORMATION: Exam: XR Chest Exam date and time: 04/11/2023 3:52 PM Age: 52 years old Clinical indication: Dyspnea TECHNIQUE: Imaging protocol: Radiologic exam of the chest. Views: 1 view. COMPARISON: CR XR chest 1V portable [id number] 01/27/2022 8:35 PM FINDINGS: Lungs: Unremarkable. No consolidation. Pleural spaces: Unremarkable. No pleural effusion. No pneumothorax. Heart/Mediastinum: Unremarkable. No cardiomegaly. Bones/joints: Unremarkable. XR/XR chest 1V portable [id number] IMPRESSION: No acute findings.
[2023-04-11 14:54] LABS: Basophils # 0.1 10^3/uL (0.0-0.1); Basophils % 0.9 %; Eosinophils # 0.1 10^3/uL (0.0-0.8); Eosinophils % 0.8 %; Hematocrit 42.7 % (36-47); Lymphocytes # 2.1 10^3/uL (0.8-4.8); Lymphocytes % 26.9 %; Mean Corpuscular HGB Conc 32.6 g/dL (30-55); Mean Corpuscular Hemoglobin 29.6 pg (27-33); Mean Corpuscular Volume 90.9 fl (85-98); Mean Platelet Volume 9.6 fL (7.4-10.4); Monocytes # 0.5 10^3/uL (0.2-0.9); Monocytes % 6.4 %; Neutrophils # 5.02 10^3/uL (1.8-7.7); Neutrophils % 64.7 %; Nucleated Red Blood Cells % 0 %; Platelet Count 323 10^3/cmm (157-399); Red Cell Distribution Width 12.8 % (12.1-15.1); White Blood Count 7.76 10^3/uL (3.29-11.43)
[2023-04-11 15:18] LABS: Alanine Aminotransferase 20 U/L (0-33); Albumin Level 4.3 g/dL (3.5-5.2); Alkaline Phosphatase 72 U/L (35-105); Anion Gap 13.5 (5-19); Aspartate Amino Transferase 15 U/L (0-32); Blood Urea Nitrogen 14 mg/dL (6-20); Calcium 9.8 mg/dL (8.5-10.5); Carbon Dioxide 24 mmol/L (22-29); Chloride 107 mmol/L (98-107); Globulin 2.8 g/dL (1.3-4.6); Glomerular Filtration Rate 65.2 mL/min (90-130); Glucose 93 mg/dL (65-115); Osmolality Calculated 290 mOsm/kg (285-295); Potassium 4.5 mmol/L (3.5-5.1); Sodium 140 mmol/L (136-145); Total Bilirubin 0.5 mg/dL (0.15-1.2); Total Protein 7.1 g/dL (6.6-8.7)
[2023-04-11 16:27] VITALS: BP 106/60; PULSE 48; RESP 18; O2SAT 99
--- NOTE | 2023-04-11 16:54 | W.ED.SOB ---
HPI - SOB/Dyspnea General: Chief Complaint: Shortness of Breath/Dyspnea Stated Complaint: sob Time Seen by Provider: 04/11/23 16:04 History of Present Illness: HPI Narrative: 52-year-old female presents emergency department with a chief complaint of heart rate variability. She says that at home her heart rate will sometimes get up into the 130s and she feels a sense of palpitations. Patient reports that this has been happening intermittently for the last few days. She tested positive for COVID around [place] time and she believes this to be a side effect from that. She took a metoprolol tartrate 12.5 mg tablet today for her tachycardia. Now she has sinus bradycardia. She said that she felt a little short of breath while exerting herself after taking the metoprolol. No diaphoresis, chest pain, swelling, orthopnea, cough, hemoptysis, fever, chest pressure. One of their family members does have SVT. She is wondering whether she is going in and out of an arrhythmia. She also endorses that she suffers from significant anxiety which has been much worse since getting COVID. This could also be contributing. No history of DVT or PE, no lower extremity swelling, redness, warmth, dilated superficial veins. Associated symptoms: Deny abdominal pain, chest pain, extremity pain, fever(s), nausea, syncope or vomiting Review of Systems General: Reports: 10 or more systems reviewed and unremarkable except in HPI and below Const: Denies: fever(s), chills or body aches Eyes: Denies: change in vision ENMT: Denies: throat pain Card: Denies: chest pain, edema or syncope Resp: Denies: dyspnea or productive cough GI: Denies: abdominal pain, nausea, vomiting or diarrhea : Denies: flank pain, dysuria or urinary frequency Musc: Denies: neck pain, back pain, extremity pain or extremity swelling Skin/Breast: Denies: rash or erythema Neuro: Denies: headache(s), numbness in extremities, weakness in extremities, lack of coordination or difficulty walking [facility] ED PFSH: Medical History Brain trauma visual midline shift syndrome Condyloma acuminata (~2019) anogenital- tx with liquid nitrogen Depression with anxiety Irritable bowel syndrome (IBS) more diarrhea No pertinent past medical history neghx: htn,dm,thyroid,dvt/pe PCP: Dr. Resendez Psychiatric care Sleep apnea Vestibular migraine managed by [facility] Surgical History History of facial surgery History of hemorrhoidectomy History of placement of ear tubes Hx of oral surgery (~2017) S/P sympathectomy (1997) Family History Mother Hypertension Thyroid disease thyroid cancer Hypercholesteremia Father Heart disease Hypercholesteremia Hx of CABG Grandmother Diabetes Paternal and Maternal Hypertension Maternal and Paternal Stroke Maternal and Paternal Thyroid disease Maternal Grandfather No problems noted. Family/Other Diabetes Paternal Aunt Colon cancer Maternal Great Grandmother---dx age unknown Heart disease Paternal Aunt x 3 Hx of CABG Sister Thyroid disease Social History Smoking and tobacco/nicotine status: current every day tobacco/nicotine user cigarettes and e-cigarettes E-Cigarette Details: vaporizer device and with nicotine E-cig/vape details: Vapes during the day Quit status (tobacco/nicotine): has quit using Year quit tobacco: 05/2019 Second hand smoke exposure: No Alcohol intake: former Year of sobriety/quit date alcohol: 2014 Substance/Drug Use: current Substance/Drug use frequency: daily Other substance/drug use details: Uses for sleep. Physical Exam Const: COMMON NORMALS: no limitations, alert and well nourished EXAM LIMITATIONS: no altered mental status HENMT: COMMON NORMALS: normocephalic, atraumatic and external ears normal HEAD & SCALP: normocephalic and atraumatic EXTERNAL EAR: Yes external ears normal MOUTH: no muffled voice Eye: COMMON NORMALS: EOMs intact bilaterally, conjunctivae normal and no scleral icterus CONJUNCTIVA: Yes conjunctivae normal Neck/C-Spine: COMMON NORMALS: no JVD GENERAL: Yes normal visual inspection and Yes trachea midline Resp: COMMON NORMALS: normal respiratory effort, No use of accessory muscles and clear to auscultation bilaterally AUSCULTATION: clear to auscultation bilaterally Cardio: COMMON NORMALS: no JVD OTHER: Patient has mostly a sinus bradycardia on her telemetry while I am examining her. At 1 point in time she appeared to have an arrhythmia with a rate of around 60. This was probably a sinus arrhythmia although we were not able to obtain an EKG before it resolved and went back to a sinus bradycardia. Her radial pulses strong. She has no lower extremity swelling. No JVD. Her lungs are clear. She is in no distress. Patient was able to ambulate in the room without assistance. GI: COMMON NORMALS: Soft to palpation and non-tender PALPATION: Yes Soft to palpation and No Guarding due to palpation present (GI) Extremity: COMMON NORMALS: normal to inspection Neuro: COMMON NORMALS: moves all extremities, no focal motor deficits and no sensory deficits noted SENSORIUM/ORIENTATION: Yes alert SPEECH: speech normal Psych: COMMON NORMALS: mental status grossly normal, Normal thought process present, cooperative, normal affect and speech normal SPEECH: Yes normal speech THOUGHT PROCESS: Normal thought process present Skin: COMMON NORMALS: no rashes or lesions noted, turgor normal and no jaundice GENERAL SKIN EXAM: no rashes or lesions noted and turgor normal Course Vital Signs: Vital signs: Vital Signs Temperature 98.0 F 04/11/23 13:31 Pulse Rate 48 L 04/11/23 16:27 Respiratory Rate 18 04/11/23 16:27 Blood Pressure 106/60 04/11/23 16:27 Pulse Oximetry 99 04/11/23 16:27 Oxygen Delivery Me thod Room Air 04/11/23 16:27 MDM - SOB/Dyspnea Medical Decision Making Patient with palpitations at home. Unclear whether this is paroxysmal arrhythmia, sinus tachycardia, anxiety, etc. She took metoprolol today and now she has a sinus bradycardia. She was a little bit symptomatic with exertion and feeling a slight sense of shortness of breath. Labs have been done and her hemoglobin is normal, electrolytes are normal, anion gap is normal, sugar is normal. I think would be galvan to stop the metoprolol given the sinus bradycardia and instead proceed with outpatient follow-up with her primary care doctor (scheduled for tomorrow) and discussed doing an ambulatory playground monitor. She does not have any signs of PE or DVT. Low suspicion for ACS, dissection, pneumonia, or other life-threatening etiologies requiring further emergency department workup or hospitalization. EKG obtained at [facility] EP interpretation Sinus bradycardia, ventricular rate 43, normal axis, normal intervals, no concerning ST segment elevations or depressions, no WPW, no heart blocks Lab Data 04/11/23 14:29 04/11/23 14:29 Labs/Radiology: Radiology Impressions Chest X-Ray 04/11/23 13:43 IMPRESSION: No acute findings. Laboratory Results WBC 7.76 10^3/uL (3.29-11.43) 04/11/23 14: RBC 4.70 10^6/uL (3.85-5.65) 04/11/23 14:29 Hgb 13.90 g/dL (11.27-16.99) 04/11/23 14:29 Hct 42.7 % (36-47) 04/11/23 14: MCV 90.9 fl (85-98) 04/11/23 14: MCH 29.6 pg (27-33) 04/11/23 14: MCHC 32.6 g/dL (30-55) 04/11/23 14: RDW 12.8 % (12.1-15.1) 04/11/23 14: Plt Count 323 10^3/cmm (157-399) 04/11/23 14: MPV 9.6 fL (7.4-10.4) 04/11/23 14: Neut % (Auto) 64.7 % 04/11/23 14: Lymph % (Auto) 26.9 % 04/11/23 14:29 Payette % (Auto) 6.4 % 04/11/23 14: Eos % (Auto) 0.8 % 04/11/23 14: Baso % (Auto) 0.9 % 04/11/23 14: Neut # (Auto) 5.02 10^3/uL (1.8-7.7) 04/11/23 14: Lymph # (Auto) 2.1 10^3/uL (0.8-4.8) 04/11/23 14: Payette # (Auto) 0.5 10^3/uL (0.2-0.9) 04/11/23 14: Eos # (Auto) 0.1 10^3/uL (0.0-0.8) 04/11/23 14: Baso # (Auto) 0.1 10^3/uL (0.0-0.1) 04/11/23 14:29 Nucleated RBC % (auto) 0 % 04/11/23 14:29 Nucleated RBCs # 0.0 /100WBC 04/11/23 14:29 Sodium 140 mmol/L (136-145) 04/11/23 14:29 Potassium 4.5 mmol/L (3.5-5.1) 04/11/23 14:29 Chloride 107 mmol/L (98-107) 04/11/23 14:29 Carbon Dioxide 24 mmol/L (22-29) 04/11/23 14:29 Anion Gap 13.5 (5-19) 04/11/23 14:29 BUN 14 mg/dL (6-20) 04/11/23 14:29 Creatinine 0.9 mg/dL (0.5-0.9) 04/11/23 14:29 GFR Calculation 65.2 mL/min (90-130) L 04/11/23 14:29 Glucose 93 mg/dL (65-115) 04/11/23 14:29 Calculated Osmolality 290 mOsm/kg (285-295) 04/11/23 14:29 Calcium 9.8 mg/dL (8.5-10.5) 04/11/23 14:29 Total Bilirubin 0.5 mg/dL (0.15-1.2) 04/11/23 14:29 AST 15 U/L (0-32) 04/11/23 14:29 ALT 20 U/L (0-33) 04/11/23 14:29 Alkaline Phosphatase 72 U/L (35-105) 04/11/23 14:29 Total Protein 7.1 g/dL (6.6-8.7) 04/11/23 14:29 Albumin 4.3 g/dL (3.5-5.2) 04/11/23 14:29 Globulin 2.8 g/dL (1.3-4.6) 04/11/23 14:29 No radiology studies performed this visit Discharge Plan Discharge Patient Disposition: Home Clinical Impression: Bradycardia, sinus, Heart palpitations Condition: Stable Prescriptions: Held metoprolol tartrate 25 mg tablet 12.5 mg PO BID PRN (Reason: HR) Qty: 90 3RF Hold Instructions: Resume on 04/25/23. Resume if directed by your doctor, otherwise hold until the end of your ambulatory playground monitor. No Action escitalopram oxalate [Lexapro] 20 mg tablet 20 mg PO DAILY Qty: 30 2RF clonazepam [Klonopin] 0.5 mg tablet 0.5 mg PO BID Qty: 60 1RF simvastatin 10 mg tablet 10 mg PO DAILY Qty: 90 3RF ondansetron HCl 4 mg tablet 4 mg PO Q8H PRN (Reason: Nausea) Qty: 60 0RF topiramate 100 mg tablet 100 mg PO DAILY hydroxyzine HCl 25 mg tablet 25 mg PO BEDTIME PRN (Reason: insomnia) Discharge Orders: Discharge ED (Routine); Ordered 04/11/23 Ordered By: Lucho Rowe Referrals: Blue Lazaro MD [Primary Care Provider] - 04/12/23 (palpitations; sinus gerardo after taking metoprolol; needs ambulatory playground monitor.) Patient Instructions: Heart Palpitations, Bradycardia (ED) Activity Restrictions/Additional Instructions: Please follow-up with your doctor tomorrow and consider doing ambulatory playground monitor to determine what your underlying rhythm is and whether you are having any paroxysmal arrhythmias that we are not seeing here in the emergency department. You do have a sinus bradycardia which may be exacerbated by metoprolol. Please hold metoprolol until you are told to resume from your doctor. Return to the emergency department if you have chest pain, passing out, sweating without exertion, fever, swelling, severe shortness of breath, or other emergent concerns. Coding Level of Care Code ED Final Cleaner for Joey Gaspar
== END 2023-04-11 17:16 | disposition home or self-care (01) ==
PROVIDERS: Nurse Practitioner Family; Emergency Provider Emergency Medicine; PCP Family Medicine
DX: R00.1 Bradycardia, unspecified (principal); R00.2 Palpitations; Z72.0 Tobacco use
CPT/HCPCS: 36415; 71045; 80053; 85025; 99284

== ENCOUNTER 2023-06-23 16:28 | Emergency (ER) | payer MEDICARE, SELFPAY ==
[2023-06-23 16:53] VITALS: BP 109/68; PULSE 73; RESP 17; TEMP 36.6; O2SAT 98; BMI 21.6
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
[2023-06-23 18:24] VITALS: BP 109/68; PULSE 73; RESP 17; TEMP 36.6; O2SAT 98
== END 2023-06-23 18:25 | disposition home or self-care (01) ==
PROVIDERS: Emergency Provider Emergency Medicine; PCP Family Medicine
DX: G25.1 Drug-induced tremor (principal); T43.225A Adverse effect of selective serotonin reuptake inhibitors, initial encounter; F17.210 Nicotine dependence, cigarettes, uncomplicated; F17.290 Nicotine dependence, other tobacco product, uncomplicated
CPT/HCPCS: 99281

== ENCOUNTER → 2023-06-25 09:47 | Outpatient (BNVA) | payer MEDICARE, SELFPAY | PROVIDERS: PCP Family Medicine; Visit Provider Nurse Practitioner Family | DX: R00.0 Tachycardia, unspecified (principal) | CPT/HCPCS: 99213 ==

== ENCOUNTER 2023-06-27 10:25 | Emergency (ER) | payer MEDICARE, SELFPAY ==
[2023-06-27 10:35] VITALS: BP 120/75; PULSE 87; TEMP 36.4; O2SAT 99; BMI 21.6
--- NOTE | 2023-06-27 10:37 | ECG_ITS ---
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 Measurements Intervals [place] Rate: 94 P: 66 NE: 134 QRS: 54 QRSD: 79 T: 67 QT: 351 QTc: 440 Interpretive Statements SINUS RHYTHM NONSPECIFIC T-WAVE ABNORMALITY Compared to ECG 02/09/2022 17:14:21 T-wave abnormality now present Electronically Signed On 06-27-2023 23:53:58 CDT by Markel Soni M.D. [id number]
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
[2023-06-27 11:05] LABS: Basophils # 0.1 10^3/uL (0.0-0.1); Basophils % 0.8 %; Eosinophils # 0.1 10^3/uL (0.0-0.8); Eosinophils % 1.3 %; Lymphocytes # 2.3 10^3/uL (0.8-4.8); Lymphocytes % 37.9 %; Mean Corpuscular Hemoglobin 29.9 pg (27-33); Mean Corpuscular Volume 90.5 fl (85-98); Monocytes # 0.5 10^3/uL (0.2-0.9); Monocytes % 7.6 %; Neutrophils # 3.22 10^3/uL (1.8-7.7); Neutrophils % 52.1 %; Nucleated Red Blood Cells % 0 %; Platelet Count 280 10^3/cmm (157-399); Red Blood Count 4.75 10^6/uL (3.85-5.65); Red Cell Distribution Width 12.8 % (12.1-15.1); White Blood Count 6.18 10^3/uL (3.29-11.43)
--- NOTE | 2023-06-27 11:05 | XR_ITS ---
WS: [id number] Exam: XR chest 1V portable [id number] Date/Time of Exam: 06/27/2023 11:06 AM Reason For Exam: htn Comparison 04/11/2023. Findings: The lungs are clear and fully expanded. Costophrenic angles are sharp. No infiltrates. Bronchovascula r relief appears normal. Cardiac silhouette is unremarkable. Bony elements are intact. IMPRESSION: Unremarkable chest radiograph.
[2023-06-27 11:37] LABS: Alanine Aminotransferase 22 U/L (0-33); Albumin Level 4.5 g/dL (3.5-5.2); Alkaline Phosphatase 71 U/L (35-105); Anion Gap 13.8 (5-19); Aspartate Amino Transferase 18 U/L (0-32); Blood Urea Nitrogen 12 mg/dL (6-20); Calcium 9.8 mg/dL (8.5-10.5); Carbon Dioxide 25 mmol/L (22-29); Chloride 106 mmol/L (98-107); Creatinine Clr Calc Pharmacy 83.8138; Globulin 2.7 g/dL (1.3-4.6); Glomerular Filtration Rate 87.2 mL/min (90-130); Glucose 83 mg/dL (65-115); Osmolality Calculated 291 mOsm/kg (285-295); Potassium 3.8 mmol/L (3.5-5.1); Sodium 141 mmol/L (136-145); Total Bilirubin 0.5 mg/dL (0.15-1.2); Total Protein 7.2 g/dL (6.6-8.7)
[2023-06-27 12:38] VITALS: BP 126/77; PULSE 67; RESP 16; O2SAT 98
== END 2023-06-27 13:31 | disposition home or self-care (01) ==
PROVIDERS: Emergency Medicine; Emergency Provider Family Medicine; PCP Family Medicine
DX: R00.2 Palpitations (principal); G43.809 Other migraine, not intractable, without status migrainosus; F17.290 Nicotine dependence, other tobacco product, uncomplicated
CPT/HCPCS: 36415; 71045; 80053; 84443; 85025; 93005; 99285

== ENCOUNTER 2023-07-12 10:15 | Outpatient (CLI) | payer MEDICARE, SELFPAY ==
--- NOTE | 2023-07-12 | ECG_ITS ---
[facility] Test Date: 2023-07-12 Pat Name: Viridiana Navarrete Department: Room: Gender: Female Live Hanger: : 1970 Requested By: Sagrario Baker Order Number: [id number] Amaya MD: Omega Nevarez M.D. Interpretive Statements NAME OF STUDY: LEXISCAN SESTAMIBI STRESS TEST INDICATION: [Chest Pain; Tachycardia] Procedure: At the baseline, the blood pressure was 118/70 mmHg with a heart rate of 57 bpm. The electrocardiogram showed sinus bradycardia, normal axis with normal ST and T's. The Lexiscan was infused over a period of 20 seconds. A total of 0.4 mg of Lexiscan was infused. The stress phase was continued for a total of 5 minutes. Heart rate was at the end of stress phase was 85 bpm and a blood pressure of 106/75 mmHg. The EKG at the peak infusion revealed normal sinus rhythm with no significant ST-T wave changes. Sestamibi was injected 20 seconds after the Lexiscan infusion. Blood pressure at the end of recovery phase was 104/74 mmHg with a heart rate of 82 bpm. Conclusion: 1. Normal EKG response to Lexiscan infusion 2. No Lexiscan induced chest pain or cardiac arrhythmia. 3. Normal blood pressure and heart rate response. 4. Sestamibi/sestamibi perfusion scan pending; see separate report. Electronically Signed On 07-19-2023 12:44:47 CDT by Omega Nevarez M.D. [email or web address]
[2023-07-12 10:37] VITALS: BMI 21.6
--- NOTE | 2023-07-12 10:41 | NMCV_ITS ---
NM tomeka perf SPECT r/s* [id number] Navarrete, Viridiana Age: 52 Gender: F : 1970 Exam Date: 07/12/2023 11:08 Ordering Phys: Sagrario Baker Technologist: JULISSA Castellano Exam Location: [facility] Indications: TACHYCARDIA STRESS TEST Please see separate stress test report in [facility] for full findings IMAGE PROTOCOL Rest/Stress 1 Lexiscan Day Radiopharmaceutical Dose (mCi) Administration Site Administered by Rest: Tc-99m 10.6 IV JULISSA Callejas Sestamibi Stress:Tc-99m 32.3 IV JULISSA Callejas Sestamibi Rest: 12-Jul-2023 60 Discovery 630 Stress: 12-Jul-2023 30 Discovery 630 0.4mg Lexiscan. Supine position only as patient was unable to lay prone. SPECT RESULTS Technical Quality: Excellent Raw Data Analysis: Normal Image Corrections: No attenuation or motion correction applied Summed Stress Score: 4 Summed Rest Score: 2 Summed Difference Score: 3 PERFUSION FINDINGS Small to medium sized area of fixed perfusion defect is noted in the apical lateral wall. This is consistent with small to medium sized area of prior infarct. Attenuation artifact can not be ruled out. FUNCTIONAL RESULTS (calculated via Gated SPECT) Stress Image LV EF (%): 80 Stress EDV (mL):49 TID: 1.07 Stress ESV (mL):10 FUNCTIONAL FINDINGS: There is normal left ventricular systolic function. IMPRESSIONS 1. Small to medium sized area of prior infarct noted in the left circumflex artery territory. Attenuation artifact cannot be ruled out. 2. LV systolic function is normal Omega Nevarez MD (Electronically Signed) Final Date: 14 July 2023 14:29 S
[2023-07-12] MEDS: regadenoson 0.4 Mg/5 ml Syringe 0.400000000000000022 MG IVP (11:56)
[2023-07-12 12:45] VITALS: BP 126/71; PULSE 71
== END 2023-07-12 10:16 | disposition home or self-care (01) ==
PROVIDERS: PCP Family Medicine; Visit Provider Nurse Practitioner Family
DX: R00.0 Tachycardia, unspecified (principal)
CPT/HCPCS: 36415; 78452; 93017; 96374; A9500; J2785